=== PATIENT | male | born 1945 | race Caucasian/White ===

== ENCOUNTER 2017-03-16 15:12 | Emergency (ER) | payer MEDICARE, BC ==
[~2017-03-16] VITALS: Ht 172.7 cm; Wt 70.0 kg
[2017-03-16] MEDS ORDERED: AUGMENTIN500TAB PO (18:05)
[2017-03-16] MEDS ORDERED: PERCOCET 5/325M1 TAB PO (18:05)
[2017-03-16 18:19] VITALS: BP 122/83
== END 2017-03-16 18:19 | disposition home or self-care (01) ==
LOC: ED 15:12
DX: S02.609A Fracture of mandible, unspecified, initial encounter for closed fracture (principal); R58 Hemorrhage, not elsewhere classified; X79.XXXA Intentional self-harm by blunt object, initial encounter; Y93.E9 Activity, other interior property and clothing maintenance; Y92.009 Unspecified place in unspecified non-institutional (private) residence as the place of occurrence of the external cause